=== PATIENT | female | born 1950 | race Caucasian/White ===

== ENCOUNTER 2016-08-06 11:26 | Inpatient (IN) | payer BC ==
[~2016-08-06] VITALS: Ht 157.5 cm; Wt 81.3 kg
[2016-08-06 12:09] LABS: HEMATOCRIT 42.3 % (36.0-46.0); MCH 28.2 PG (29.0-34.0); MCHC 32.2 G/DL (30.0-36.0); MCV 87.8 FL (83-99); MEAN PLAT.VOLUME 12.6 uM^3 (9.5-12.4); PLATELET COUNT 169 K/uL (156-360); RBC DIS.WIDTH-CV 13.1 % (11.8-14.6); RBC DIS.WIDTH-SD 42.2 % (39-53); RED BLOOD COUNT 4.82 M/uL (3.80-5.20); WHITE BLOOD COUNT 10.4 K/uL (4.1-10.2)
[2016-08-06 12:14] LABS: CHLORIDE 110 mEq/L (99-109); POTASSIUM 4.5 mEq/L (3.7-5.4); SODIUM 142 mEq/L (136-147)
[2016-08-06 12:16] LABS: GLUCOSE 109 mg/dL (70-99)
[2016-08-06 12:18] LABS: ANION GAP 13 MEQ/L (2-14)
[2016-08-06 12:20] LABS: GFR ESTIMATE (CALCULATED) > 59 mL/min/
[2016-08-06 12:21] LABS: UREA NITROGEN (BUN) 11 mg/dL (9-23)
[2016-08-06 13:18] LABS: TROP-I INTERPRETATION NEGATIVE; TROPONIN-I < 0.01 ng/mL (0.0-0.30)
[2016-08-06 13:33] LABS: ADD MIUA? NO; BILIRUBIN NEGATIVE; BLOOD NEGATIVE; COLOR STRAW ((YELLOW)); GLUCOSE (STRIP) NEGATIVE; KETONES NEGATIVE; LEUKOCYTES NEGATIVE; NITRITE NEGATIVE; PROTEIN (STRIP) NEGATIVE; SPECIFIC GRAVITY 1.009 (1.000-1.030); UROBILINOGEN 0.2 MG/DL (0.2-1.0)
[2016-08-06] MEDS ORDERED: NUCYNTA50 MG PO (16:22)
[2016-08-06] MEDS ORDERED: PRAVACHOL20 MG PO (16:23)
[2016-08-06] MEDS ORDERED: CELEBREX200 MG PO (16:23)
[2016-08-06] MEDS ORDERED: LYRICA50 MG PO (16:23)
[2016-08-06] MEDS ORDERED: COLACE100 MG PO (16:24)
[2016-08-06] MEDS ORDERED: ZANAFLEX6 MG PO (16:24)
[2016-08-06] MEDS ORDERED: CYMBALTA20 MG PO (16:24)
[2016-08-06] MEDS ORDERED: CEPHALEXIN500 MG PO (16:25)
[2016-08-06 16:44] LABS: INFLUENZA A VIRAL ANTIGEN NEGATIVE; INFLUENZA B VIRAL ANTIGEN NEGATIVE
[2016-08-06 18:10] VITALS: BP 142/67
[2016-08-06 19:35] VITALS: BP 135/61
[2016-08-06 22:42] LABS: POINT-OF-CARE METER ID UU14188577
[2016-08-06 22:51] VITALS: BP 88/48
[2016-08-06 23:16] LABS: CHLORIDE 114 mEq/L (99-109); POTASSIUM 3.8 mEq/L (3.7-5.4); SODIUM 142 mEq/L (136-147)
[2016-08-06 23:18] LABS: GLUCOSE 118 mg/dL (70-99)
[2016-08-06 23:20] LABS: ANION GAP 7 MEQ/L (2-14); TOTAL BILIRUBIN 0.3 mg/dL (0.0-1.0)
[2016-08-06 23:22] LABS: ALKALINE PHOSPHATASE 64 IU/L (3-129); GFR ESTIMATE (CALCULATED) > 59 mL/min/
[2016-08-06 23:23] LABS: UREA NITROGEN (BUN) 8 mg/dL (9-23)
[2016-08-06 23:24] LABS: TROP-I INTERPRETATION NEGATIVE; TROPONIN-I < 0.01 ng/mL (0.0-0.30)
[2016-08-06 23:35] VITALS: BP 89/52
[2016-08-07] VITALS (7 sets, daily range): BP systolic 93–180; BP diastolic 59–92
[2016-08-07 05:48] LABS: HEMATOCRIT 32.8 % (36.0-46.0); MCH 28.4 PG (29.0-34.0); MCHC 32.3 G/DL (30.0-36.0); MCV 87.9 FL (83-99); MEAN PLAT.VOLUME 13.3 uM^3 (9.5-12.4); PLATELET COUNT 140 K/uL (156-360); RBC DIS.WIDTH-CV 13.6 % (11.8-14.6); RBC DIS.WIDTH-SD 43.8 % (39-53); RED BLOOD COUNT 3.73 M/uL (3.80-5.20); WHITE BLOOD COUNT 7.4 K/uL (4.1-10.2)
[2016-08-07 05:57] LABS: ANION GAP 7 MEQ/L (2-14); CHLORIDE 112 MEQ/L (99-109); GFR ESTIMATE (CALCULATED) > 59 mL/min/; GLUCOSE 93 mg/dL (70-99); POTASSIUM 4.2 MEQ/L (3.7-5.4); SAMPLE HEMOLYSIS CHECK 0; SAMPLE ICTERIC CHECK 0; SAMPLE LIPEMIA CHECK 0; SODIUM 144 MEQ/L (136-147); UREA NITROGEN (BUN) 6 mg/dL (9-23)
[2016-08-08 03:46] VITALS: BP 129/57
[2016-08-08 04:25] VITALS: BP 174/80
[2016-08-08 08:27] VITALS: BP 149/70
[2016-08-08 11:33] VITALS: BP 176/88
[2016-08-08 16:40] VITALS: BP 146/78
[2016-08-08 19:39] VITALS: BP 138/82
[2016-08-09 03:28] VITALS: BP 138/67
[2016-08-09 05:41] LABS: BASOPHIL COUNT 0.1 K/uL (0-0.1); EOSINOPHIL (%) 1.6 % (0-5); EOSINOPHIL COUNT 0.1 K/uL (0-0.3); HEMATOCRIT 34.1 % (36.0-46.0); IMMATURE GRANULOCYTE (%) 0.3 % (0.0-0.7); INSTRUMENT ABS NEUTROPHIL CT 4.1 K/uL; LYMPHOCYTE COUNT 2.4 K/uL (1.0-2.8); MCH 28.2 PG (29.0-34.0); MCHC 32.6 G/DL (30.0-36.0); MCV 86.8 FL (83-99); MEAN PLAT.VOLUME 12.8 uM^3 (9.5-12.4); MONOCYTE (%) 8.1 % (3-12); MONOCYTE COUNT 0.6 K/uL (0-0.8); NEUTROPHIL (%) 55.9 % (45-76); NEUTROPHIL COUNT 4.1 K/uL (1.8-6.4); PLATELET COUNT 175 K/uL (156-360); RBC DIS.WIDTH-CV 12.9 % (11.8-14.6); RBC DIS.WIDTH-SD 41.1 % (39-53); RED BLOOD COUNT 3.93 M/uL (3.80-5.20); WHITE BLOOD COUNT 7.3 K/uL (4.1-10.2)
[2016-08-09 05:54] LABS: ANION GAP 8 MEQ/L (2-14); CHLORIDE 105 MEQ/L (99-109); GFR ESTIMATE (CALCULATED) > 59 mL/min/; GLUCOSE 101 mg/dL (70-99); SAMPLE HEMOLYSIS CHECK 0; SAMPLE ICTERIC CHECK 0; SAMPLE LIPEMIA CHECK 0; SODIUM 141 MEQ/L (136-147); UREA NITROGEN (BUN) 10 mg/dL (9-23)
[2016-08-09 08:22] VITALS: BP 157/73
[2016-08-09 11:28] VITALS: BP 154/87
[2016-08-09 11:37] LABS: POINT-OF-CARE METER ID UU14188577
[2016-08-09] MEDS ORDERED: CEPHALEXIN500 MG PO (15:06)
== END 2016-08-09 16:33 | disposition home or self-care (01) | DRG 872 ==
LOC: EME 11:26 → EDOF 14:56 → 3EAST 14:56
PROVIDERS: Emergency Medicine; Hospitalist; Internal Medicine; Student in an Organized Health Care Education/Training Program
DX: A41.9 Sepsis, unspecified organism (principal); J95.4 Chemical pneumonitis due to anesthesia; T41.0X5A Adverse effect of inhaled anesthetics, initial encounter; I95.9 Hypotension, unspecified; E78.5 Hyperlipidemia, unspecified; G89.18 Other acute postprocedural pain; M79.7 Fibromyalgia; M19.90 Unspecified osteoarthritis, unspecified site; Z96.652 Presence of left artificial knee joint; Z87.891 Personal history of nicotine dependence
CPT/HCPCS: 71020; 71275; 72131; 74176; 80048; 80053; 81003; 82948; 83605; 84484; 85025; 85027; 87040; 87502; 93005; 99281; 99284; J0456; J0696; J1650; J2405; J2543; J3370; J7030; J7050; J7120